=== PATIENT | male | born 1985 | race Two or more races ===

== ENCOUNTER 2018-09-11 02:25 | Emergency (ER) | payer MEDICAID ==
[~2018-09-11] VITALS: Ht 172.7 cm; Wt 61.2 kg
[2018-09-11 02:28] VITALS: BP 115/94
--- NOTE | 2018-09-11 02:30 | NUR ---
PT TAKEN TO BED 3
--- NOTE | 2018-09-11 02:46 | NUR ---
PT PRESENTS TO ED WITH C/O LT ANKLE PAIN X 1 DAY. PT STATED ELASTIC SOCKS TOO TIGH AND HURT LT ANNKLE. AAO X4, GCS 15, RESPIARTIONS EVEN AND UNLABORED. SKIN WARM/PINK/DRY, lR ANKLE NO APPARENT INJURY. VSS, NO ACUTE DISTRESS AT THIS TIME. DR. HERNANDEZ MADE AWARE OF PT STATUS
[2018-09-11] MEDS ORDERED: NEOMYCIN/POLYMYXIN/BACITRACIN 0.9 GM/1 PKT TP ONE (02:50)
--- NOTE | 2018-09-11 03:19 | NUR ---
Patient discharged with v/s stable. Written and verbal after care instructions given and explained. Patient alert, oriented and verbalized understanding of instructions. Ambulatory with steady gait. All questions addressed prior to discharge. ID band removed. Patient advised to follow up with PMD. Rx of MOTRIN 400 MG, NEOSPONRIN TOPICAL OINTMENT given. Patient educated on indication of medication including possible reaction and side effects. Opportunity to ask questions provided and answered.
== END 2018-09-11 03:19 | disposition home or self-care (01) ==
LOC: MED 02:25
DX: M79.662 Pain in left lower leg (principal); R60.0 Localized edema; L98.9 Disorder of the skin and subcutaneous tissue, unspecified; X58.XXXA Exposure to other specified factors, initial encounter; Y93.89 Activity, other specified; Y92.89 Other specified places as the place of occurrence of the external cause; Y99.8 Other external cause status
CPT/HCPCS: 73610; 99283; Q0092